=== PATIENT | male | born 1980 | race Caucasian/White ===

== ENCOUNTER 2018-03-21 20:51 | Emergency (ER) | payer OTHER ==
[~2018-03-21] VITALS: Ht 180.3 cm; Wt 81.7 kg
[~2018-03-21 20:51] MED LIST: BENTYL 20 MG TA20 M1 PO; CIPRO500 MG PO; CIPROFLOXACIN500 M1 PO; CYCLOBENZAPRINE5 MG PO; FLOMAX0.4 MG; FLOMAX0.4 MG PO; HYDROCODON-ACE1 EAC7 PO; IBUPROFEN 200200 M1; IBUPROFEN 800800 MG PO; MIGRAINE MED; MUCINEX TA600 MG/TA2; NAPROSYN500 M1 PO; NAPROSYN500 MG PO; NOHOMEMEDICATIONS; NORCO 5-325 TA1 EACH PO; PERCOCET 5-3251 EACH PO; PERCOCET 7.5-31 EACH PO; PERCOCET PO; PHENERGAN 25 MG25 M1 PO; PREDNISONE 20 M20 M1 PO; PROAIR HFA8.5 GM INH; TESSALON PERLE100 MG PO; TORADOL 10 MG T10 MG PO; TRAMADOL 50 MG50 MG PO; TYLENOL325 MG PO; ULTRACET TABLE1 EACH PO; ULTRAM 50MG TAB50 MG PO; ZOFRAN ODT4 MG PO; ZYRTEC10 M2 PO
[2018-03-21] MEDS ORDERED: MOBIC15 MG PO (22:06)
[2018-03-21] MEDS ORDERED: FLEXERIL PO (22:06)
[2018-03-21 22:24] VITALS: BP 121/70
== END 2018-03-21 22:24 | disposition home or self-care (01) ==
LOC: M.ERS 20:51
DX: S46.811A Strain of other muscles, fascia and tendons at shoulder and upper arm level, right arm, initial encounter (principal); J45.909 Unspecified asthma, uncomplicated; Z87.442 Personal history of urinary calculi; Z88.5 Allergy status to narcotic agent; Z88.8 Allergy status to other drugs, medicaments and biological substances; X58.XXXA Exposure to other specified factors, initial encounter; Y93.89 Activity, other specified; Y92.89 Other specified places as the place of occurrence of the external cause; Y99.8 Other external cause status

== ENCOUNTER 2018-04-03 21:16 | Emergency (ER) | payer OTHER ==
[~2018-04-03] VITALS: Ht 180.3 cm; Wt 81.7 kg
[~2018-04-03 21:16] MED LIST changes: +FLEXERIL PO; +MOBIC15 MG PO
[2018-04-03] MEDS ORDERED: NAPROSYN500 MG PO (21:24)
[2018-04-03 22:12] VITALS: BP 124/69
== END 2018-04-03 22:12 | disposition home or self-care (01) ==
LOC: M.ERS 21:16
DX: M77.8 Other enthesopathies, not elsewhere classified (principal); M70.841 Other soft tissue disorders related to use, overuse and pressure, right hand; Y93.89 Activity, other specified; J45.909 Unspecified asthma, uncomplicated; Z88.5 Allergy status to narcotic agent; Z88.8 Allergy status to other drugs, medicaments and biological substances

== ENCOUNTER 2018-12-04 02:12 | Emergency (ER) | payer OTHER ==
[~2018-12-04] VITALS: Ht 177.8 cm; Wt 79.4 kg
[2018-12-04] MEDS ORDERED: CLARITIN10 MG PO (02:18)
[2018-12-04] MEDS ORDERED: FLEXERIL PO (03:10)
[2018-12-04] MEDS ORDERED: PERCOCET 7.5-31 EACH PO (03:10)
[2018-12-04 03:33] VITALS: BP 147/76
== END 2018-12-04 03:34 | disposition home or self-care (01) ==
LOC: M.ERS 02:12
DX: S22.31XA Fracture of one rib, right side, initial encounter for closed fracture (principal); J45.909 Unspecified asthma, uncomplicated; Z88.5 Allergy status to narcotic agent; Z87.442 Personal history of urinary calculi; Z88.8 Allergy status to other drugs, medicaments and biological substances; X58.XXXA Exposure to other specified factors, initial encounter; Y93.89 Activity, other specified; Y92.89 Other specified places as the place of occurrence of the external cause; Y99.8 Other external cause status

== ENCOUNTER 2019-01-31 21:05 | Emergency (ER) | payer OTHER ==
[~2019-01-31] VITALS: Ht 177.8 cm; Wt 77.1 kg
[~2019-01-31 21:05] MED LIST changes: +CLARITIN10 MG PO
[2019-01-31] MEDS ORDERED: FLEXERIL PO (21:15)
[2019-01-31] MEDS ORDERED: TRAMADOL 50 MG50 MG PO (21:15)
[2019-01-31] MEDS ORDERED: TYLENOL WITH CO1 TA1 PO (22:56)
[2019-01-31 23:33] VITALS: BP 124/80
== END 2019-01-31 23:33 | disposition home or self-care (01) ==
LOC: M.ERS 21:05
DX: M76.62 Achilles tendinitis, left leg (principal); M79.672 Pain in left foot; J45.909 Unspecified asthma, uncomplicated; Z88.5 Allergy status to narcotic agent; Z88.8 Allergy status to other drugs, medicaments and biological substances; Z87.442 Personal history of urinary calculi

== ENCOUNTER 2019-04-25 21:18 | Emergency (ER) | payer OTHER ==
[~2019-04-25] VITALS: Ht 180.3 cm; Wt 78.5 kg
[~2019-04-25 21:18] MED LIST changes: +TYLENOL WITH CO1 TA1 PO
[2019-04-25] MEDS ORDERED: FAMOTIDINE 20 M20 MG PO (22:35)
[2019-04-25] MEDS ORDERED: BENADRYL25 MG PO (22:35)
[2019-04-25] MEDS ORDERED: PREDNISONE 20 M20 MG PO (22:35)
[2019-04-26 00:23] VITALS: BP 118/76
== END 2019-04-26 00:25 | disposition home or self-care (01) ==
LOC: M.ERS 21:18
DX: L50.0 Allergic urticaria (principal); J45.909 Unspecified asthma, uncomplicated; Z87.442 Personal history of urinary calculi; Z88.5 Allergy status to narcotic agent; Z88.8 Allergy status to other drugs, medicaments and biological substances

== ENCOUNTER 2019-08-14 18:13 | Emergency (ER) | payer OTHER ==
[~2019-08-14] VITALS: Ht 180.3 cm; Wt 77.1 kg
[~2019-08-14 18:13] MED LIST changes: +BENADRYL25 MG PO; +FAMOTIDINE 20 M20 MG PO; +PREDNISONE 20 M20 MG PO
[2019-08-14 18:51] LABS: HEMATOCRIT 46.5 % (42.0-52.0); HEMOGLOBIN 16.6 gm/dL (14.0-18.0); MCH 31.8 pg (26.0-34.0); MCHC 35.7 g/dL (28.0-37.0); MCV 89.1 fL (80.0-100.0); MPV 9.4 fl. (7.2-11.1); RBC 5.22 mil/uL (4.50-6.00); RDW-CV 12.7 % (10.5-14.5); WBC 9.3 thou/uL (4.0-11.0)
[2019-08-14 19:00] LABS: CALCIUM 8.2 mg/dL (8.5-10.1); CREATININE 1.2 mg/dL (0.6-1.3); POTASSIUM 3.5 mmol/L (3.5-5.1)
[2019-08-14] MEDS ORDERED: PREDNISONE50 MG PO (22:26)
[2019-08-14 22:42] VITALS: BP 113/62
--- NOTE | 2019-08-15 08:57 | EKG ---
[place] [address] ELECTROCARDIOGRAM REPORT Name: SARTHAK COSTELLO Room: [facility]#: [id number] Admission: 08/14/19 Attend Phys: Discharge: 08/14/19 Date of : 80 Date of Service: 08/14/191821 Report #: [id number] THIS REPORT FOR: //name// [facility] ED Test Date: 2019-08-14 Test Time: 18:22:37 Pat Name: SARTHAK COSTELLO Department: Room: Gender: Manager Clinical Pharmacy: : 1980 Requested By: Gregg Cantu Order Number: [id number] MD: Yair Collado Measurements Intervals [place] Rate: 56 P: 48 [place]: 146 QRS: 61 QRSD: 98 T: 55 QT: 398 QTc: 385 Interpretive Statements Sinus rhythm Probable left atrial enlargement Left ventricular hypertrophy ST elev, probable normal early repol pattern Compared to ECG 12/04/2016 08:31:38 No significant changes Electronically Signed On 08-15-2019 8:55:59 CDT by Yair Collado [email or web address] <ELECTRONICALLY SIGNED> By: Yair Collado MD, FAC 08/15/19 0855 1822 1822 Yair Collado MD, [facility] /EPI
== END 2019-08-14 22:43 | disposition home or self-care (01) ==
LOC: M.ERS 18:13
PROVIDERS: Emergency Medicine Emergency Medical Services
DX: T78.40XA Allergy, unspecified, initial encounter (principal); J45.909 Unspecified asthma, uncomplicated; Z87.442 Personal history of urinary calculi; Z88.6 Allergy status to analgesic agent; Z88.8 Allergy status to other drugs, medicaments and biological substances; X58.XXXA Exposure to other specified factors, initial encounter

== ENCOUNTER 2019-10-04 18:50 | Emergency (ER) | payer OTHER ==
[~2019-10-04] VITALS: Ht 180.3 cm; Wt 77.1 kg
[~2019-10-04 18:50] MED LIST changes: +PREDNISONE50 MG PO
[2019-10-04 19:52] LABS: URINE BILIRUBIN NEGATIVE (Negative); URINE BLOOD NEGATIVE (Negative); URINE CLARITY CLEAR; URINE COLOR YELLOW; URINE GLUCOSE-RANDOM NEGATIVE (Negative); URINE KETONES TRACE (Negative); URINE LEUKOCYTES-REFLEX NEGATIVE (Negative); URINE NITRITE-REFLEX NEGATIVE (Negative); URINE PROTEIN NEGATIVE (Negative); URINE SPECIFIC GRAVITY 1.025 (1.005-1.030)
[2019-10-04 20:08] LABS: ABSOLUTE EOSINOPHILS 0.1 thou/uL (0.0-0.7); ABSOLUTE LYMPHOCYTES 1.2 thou/uL (0.8-5.3); ABSOLUTE MONOCYTES 0.4 thou/uL (0.0-1.2); ABSOLUTE NEUTROPHILS 7.1 thou/uL (1.6-8.1); BASOPHILS 0.3 %; EOSINOPHILS 0.6 %; HEMATOCRIT 45.6 % (42.0-52.0); HEMOGLOBIN 16.3 gm/dL (14.0-18.0); LYMPHOCYTES 13.8 %; MCH 31.1 pg (26.0-34.0); MCHC 35.8 g/dL (28.0-37.0); MCV 86.9 fL (80.0-100.0); MONOCYTES 4.1 %; MPV 8.5 fl. (7.2-11.1); NUCLEATED RBCS 0 /100WBC; PLATELET COUNT* 193 thou/uL (150-400); POLYS 81.2 %; RBC 5.25 mil/uL (4.50-6.00); RDW-CV 13.2 % (10.5-14.5); WBC 8.8 thou/uL (4.0-11.0)
[2019-10-04 20:10] LABS: CALCIUM 8.6 mg/dL (8.5-10.1); POTASSIUM 4.2 mmol/L (3.5-5.1)
[2019-10-04 20:14] LABS: ALBUMIN 4.2 g/dL (3.4-5.0); TOTAL BILIRUBIN 1.2 mg/dL (<0.1-1.0); TOTAL PROTEIN 7.7 g/dL (6.4-8.2)
[2019-10-04 21:11] LABS: ESR (SEDRATE) 1 mm/hr (0-15)
[2019-10-04] MEDS ORDERED: PREDNISONE 20 M20 M1 PO (21:18)
[2019-10-04 21:59] VITALS: BP 126/82
== END 2019-10-04 21:55 | disposition home or self-care (01) ==
LOC: M.ERS 18:50
PROVIDERS: Personal Emergency Response Attendant
DX: T67.5XXA Heat exhaustion, unspecified, initial encounter (principal); L50.9 Urticaria, unspecified; R42 Dizziness and giddiness; J45.909 Unspecified asthma, uncomplicated; Z87.442 Personal history of urinary calculi; Z88.8 Allergy status to other drugs, medicaments and biological substances; Z88.5 Allergy status to narcotic agent; X30.XXXA Exposure to excessive natural heat, initial encounter; Y93.89 Activity, other specified; Y92.89 Other specified places as the place of occurrence of the external cause; Y99.8 Other external cause status

== ENCOUNTER 2020-01-26 21:17 | Emergency (ER) | payer BC ==
[~2020-01-26] VITALS: Ht 180.3 cm; Wt 74.8 kg
[2020-01-26] MEDS ORDERED: TRAMADOL 50 MG50 MG PO (21:30)
[2020-01-26 21:48] LABS: INFLUENZA A ANTIGEN Negative (Negative); INFLUENZA B ANTIGEN Negative (Negative)
[2020-01-26] MEDS ORDERED: PROAIR HFA8.5 GM INH (23:09)
[2020-01-26 23:16] VITALS: BP 125/72
== END 2020-01-26 23:17 | disposition home or self-care (01) ==
LOC: M.ERS 21:17
PROVIDERS: Emergency Medicine
DX: J06.9 Acute upper respiratory infection, unspecified (principal); Z20.828 Contact with and (suspected) exposure to other viral communicable diseases; J45.909 Unspecified asthma, uncomplicated; Z87.442 Personal history of urinary calculi; Z88.8 Allergy status to other drugs, medicaments and biological substances

== ENCOUNTER 2020-02-28 07:21 | Emergency (ER) | payer BC ==
[~2020-02-28] VITALS: Ht 180.3 cm; Wt 74.8 kg
[2020-02-28 07:34] LABS: URINE BILIRUBIN NEGATIVE (Negative); URINE BLOOD NEGATIVE (Negative); URINE CLARITY CLEAR; URINE COLOR YELLOW; URINE GLUCOSE-RANDOM 1+ (Negative); URINE KETONES NEGATIVE (Negative); URINE LEUKOCYTES-REFLEX NEGATIVE (Negative); URINE NITRITE-REFLEX NEGATIVE (Negative); URINE PROTEIN NEGATIVE (Negative); URINE SPECIFIC GRAVITY 1.025 (1.005-1.030); URINE UROBILINOGEN 0.2 E.U./dl (0.2-1.0)
[2020-02-28 07:57] LABS: ABSOLUTE EOSINOPHILS 0.1 thou/uL (0.0-0.7); ABSOLUTE LYMPHOCYTES 1.3 thou/uL (0.8-5.3); ABSOLUTE MONOCYTES 0.5 thou/uL (0.0-1.2); ABSOLUTE NEUTROPHILS 3.6 thou/uL (1.6-8.1); BASOPHILS 0.6 %; EOSINOPHILS 1.4 %; MCHC 35.5 g/dL (28.0-37.0); MCV 87.4 fL (80.0-100.0); MONOCYTES 8.5 %; MPV 8.8 fl. (7.2-11.1); NUCLEATED RBCS 0 /100WBC; PLATELET COUNT* 167 thou/uL (150-400); POLYS 66.5 %; RBC 5.49 mil/uL (4.50-6.00); RDW-CV 13.1 % (10.5-14.5); WBC 5.5 thou/uL (4.0-11.0)
[2020-02-28 08:15] LABS: CALCIUM 8.2 mg/dL (8.5-10.1); CREATININE 1.1 mg/dL (0.6-1.3); POTASSIUM 3.8 mmol/L (3.5-5.1)
[2020-02-28 08:20] LABS: ALBUMIN 3.6 g/dL (3.4-5.0); TOTAL BILIRUBIN 0.7 mg/dL (<0.1-1.0); TOTAL PROTEIN 7.4 g/dL (6.4-8.2)
[2020-02-28] MEDS ORDERED: TRAMADOL 50 MG50 MG PO (09:11)
[2020-02-28] MEDS ORDERED: ZOFRAN ODT4 MG SUBLING (09:11)
[2020-02-28 09:23] VITALS: BP 107/58
== END 2020-02-28 09:24 | disposition home or self-care (01) ==
LOC: M.ERS 07:21
PROVIDERS: Family Medicine
DX: R10.31 Right lower quadrant pain (principal); M54.5 Low back pain; R19.7 Diarrhea, unspecified; J45.909 Unspecified asthma, uncomplicated; Z87.442 Personal history of urinary calculi; Z79.899 Other long term (current) drug therapy; Z88.8 Allergy status to other drugs, medicaments and biological substances; Z88.6 Allergy status to analgesic agent

== ENCOUNTER 2020-03-28 06:10 | Emergency (ER) | payer BC ==
[~2020-03-28] VITALS: Ht 180.3 cm; Wt 72.6 kg
[~2020-03-28 06:10] MED LIST changes: +ZOFRAN ODT4 MG SUBLING
[2020-03-28 07:06] LABS: ABSOLUTE EOSINOPHILS 0.2 thou/uL (0.0-0.7); ABSOLUTE LYMPHOCYTES 1.5 thou/uL (0.8-5.3); ABSOLUTE MONOCYTES 0.5 thou/uL (0.0-1.2); ABSOLUTE NEUTROPHILS 2.6 thou/uL (1.6-8.1); BASOPHILS 0.7 %; EOSINOPHILS 3.4 %; HEMOGLOBIN 16.9 gm/dL (14.0-18.0); LYMPHOCYTES 31.7 %; MCH 30.6 pg (26.0-34.0); MCHC 34.5 g/dL (28.0-37.0); MCV 88.8 fL (80.0-100.0); MONOCYTES 9.6 %; MPV 9.1 fl. (7.2-11.1); NUCLEATED RBCS 0 /100WBC; PLATELET COUNT* 153 thou/uL (150-400); POLYS 54.6 %; RBC 5.52 mil/uL (4.50-6.00); RDW-CV 13.4 % (10.5-14.5); WBC 4.8 thou/uL (4.0-11.0)
[2020-03-28 07:15] LABS: CALCIUM 8.4 mg/dL (8.5-10.1); CREATININE 0.9 mg/dL (0.6-1.3); POTASSIUM 3.4 mmol/L (3.5-5.1)
[2020-03-28] MEDS ORDERED: ZOFRAN ODT4 MG DISSOLVE (09:19)
[2020-03-28 09:45] VITALS: BP 117/80
== END 2020-03-28 09:46 | disposition still patient (30) ==
LOC: M.ERS 06:10
PROVIDERS: Emergency Medicine
DX: R51.9 Headache, unspecified (principal); R10.84 Generalized abdominal pain; J45.909 Unspecified asthma, uncomplicated; Z79.899 Other long term (current) drug therapy; Z88.8 Allergy status to other drugs, medicaments and biological substances; Z20.828 Contact with and (suspected) exposure to other viral communicable diseases

== ENCOUNTER 2020-08-29 20:21 | Emergency (ER) | payer BC ==
[~2020-08-29] VITALS: Ht 180.3 cm; Wt 74.8 kg
[~2020-08-29 20:21] MED LIST changes: +ZOFRAN ODT4 MG DISSOLVE
[2020-08-29 20:55] LABS: ABSOLUTE EOSINOPHILS 0.2 thou/uL (0.0-0.7); ABSOLUTE LYMPHOCYTES 2.1 thou/uL (0.8-5.3); ABSOLUTE MONOCYTES 0.7 thou/uL (0.0-1.2); ABSOLUTE NEUTROPHILS 4.1 thou/uL (1.6-8.1); BASOPHILS 0.7 %; EOSINOPHILS 3.1 %; HEMATOCRIT 45.8 % (42.0-52.0); HEMOGLOBIN 16.1 gm/dL (14.0-18.0); LYMPHOCYTES 28.9 %; MCH 31.2 pg (26.0-34.0); MCV 89.1 fL (80.0-100.0); MPV 8.9 fl. (7.2-11.1); NUCLEATED RBCS 0 /100WBC; PLATELET COUNT* 184 thou/uL (150-400); POLYS 57.3 %; RBC 5.14 mil/uL (4.50-6.00); RDW-CV 13.2 % (10.5-14.5); WBC 7.1 thou/uL (4.0-11.0)
[2020-08-29 21:02] LABS: CALCIUM 8.5 mg/dL (8.5-10.1); CREATININE 0.9 mg/dL (0.6-1.3); POTASSIUM 3.4 mmol/L (3.5-5.1)
[2020-08-29 21:06] LABS: URINE BILIRUBIN NEGATIVE (Negative); URINE BLOOD NEGATIVE (Negative); URINE CLARITY CLEAR; URINE COLOR YELLOW; URINE GLUCOSE-RANDOM NEGATIVE (Negative); URINE KETONES NEGATIVE (Negative); URINE LEUKOCYTES-REFLEX NEGATIVE (Negative); URINE NITRITE-REFLEX NEGATIVE (Negative); URINE PROTEIN NEGATIVE (Negative); URINE SPECIFIC GRAVITY 1.015 (1.005-1.030)
[2020-08-29] MEDS ORDERED: ZOFRAN ODT4 MG PO (22:15)
[2020-08-29 22:34] VITALS: BP 122/68
== END 2020-08-29 22:34 | disposition home or self-care (01) ==
LOC: M.ERS 20:21
PROVIDERS: Emergency Medicine
DX: T67.9XXA Effect of heat and light, unspecified, initial encounter (principal); R51.9 Headache, unspecified; J45.909 Unspecified asthma, uncomplicated; Z88.5 Allergy status to narcotic agent; Z88.8 Allergy status to other drugs, medicaments and biological substances; Z87.442 Personal history of urinary calculi; X30.XXXA Exposure to excessive natural heat, initial encounter; Y93.89 Activity, other specified; Y92.89 Other specified places as the place of occurrence of the external cause; Y99.8 Other external cause status

== ENCOUNTER 2020-09-18 17:10 | Emergency (ER) | payer BC ==
[~2020-09-18] VITALS: Ht 180.3 cm; Wt 74.8 kg
[2020-09-18] MEDS ORDERED: TRAMADOL 50 MG50 MG PO (17:26)
[2020-09-18 19:04] LABS: ABSOLUTE BASOPHILS 0.1 thou/uL (0.0-0.2); ABSOLUTE EOSINOPHILS 0.1 thou/uL (0.0-0.7); ABSOLUTE LYMPHOCYTES 1.7 thou/uL (0.8-5.3); ABSOLUTE MONOCYTES 0.8 thou/uL (0.0-1.2); ABSOLUTE NEUTROPHILS 8.7 thou/uL (1.6-8.1); BASOPHILS 0.5 %; HEMATOCRIT 44.2 % (42.0-52.0); HEMOGLOBIN 15.9 gm/dL (14.0-18.0); LYMPHOCYTES 14.9 %; MCH 31.6 pg (26.0-34.0); MCHC 35.9 g/dL (28.0-37.0); MCV 87.8 fL (80.0-100.0); MONOCYTES 7.3 %; NUCLEATED RBCS 0 /100WBC; PLATELET COUNT* 187 thou/uL (150-400); POLYS 76.3 %; RBC 5.04 mil/uL (4.50-6.00); RDW-CV 13.2 % (10.5-14.5); WBC 11.3 thou/uL (4.0-11.0)
[2020-09-18 19:08] LABS: CALCIUM 8.2 mg/dL (8.5-10.1); CREATININE 0.9 mg/dL (0.6-1.3); POTASSIUM 3.9 mmol/L (3.5-5.1)
[2020-09-18 19:12] LABS: ALBUMIN 3.7 g/dL (3.4-5.0); TOTAL BILIRUBIN 0.5 mg/dL (<0.1-1.0); TOTAL PROTEIN 7.3 g/dL (6.4-8.2)
[2020-09-18] MEDS ORDERED: MEDROLDOSEPACK PO (20:19)
[2020-09-18] MEDS ORDERED: ZOFRAN ODT4 MG PO (20:19)
[2020-09-18 20:27] VITALS: BP 123/66
--- NOTE | 2020-09-19 09:22 | EKG ---
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 Terminal: : 1980 Requested By: Keely Ramachandran Order Number: [id number] MD: Yair Collado Measurements Intervals [place] Rate: 63 P: 44 [place]: 159 QRS: 53 QRSD: 88 T: 30 QT: 380 QTc: 389 Interpretive Statements Sinus rhythm Consider left ventricular hypertrophy ST elev, probable normal early repol pattern Compared to ECG 08/14/2019 18:22:37 No significant changes Electronically Signed On 09-19-2020 9:22:35 CDT by Yair Collado [email or web address] <ELECTRONICALLY SIGNED> By: Yair Collado MD, FAC 09/19/20 0922 1858 1858 aYir Collado MD, [facility] /EPI
== END 2020-09-18 20:28 | disposition home or self-care (01) ==
LOC: M.ERS 17:10
PROVIDERS: Nurse Practitioner Family
DX: M77.9 Enthesopathy, unspecified (principal); M25.532 Pain in left wrist; G43.909 Migraine, unspecified, not intractable, without status migrainosus; F12.90 Cannabis use, unspecified, uncomplicated; J45.909 Unspecified asthma, uncomplicated; Z88.5 Allergy status to narcotic agent; Z88.8 Allergy status to other drugs, medicaments and biological substances; Z87.442 Personal history of urinary calculi

== ENCOUNTER 2020-09-21 08:29 | Emergency (ER) | payer BC ==
[~2020-09-21] VITALS: Ht 154.9 cm; Wt 74.8 kg
[~2020-09-21 08:29] MED LIST changes: +MEDROLDOSEPACK PO
[2020-09-21 08:51] LABS: ABSOLUTE EOSINOPHILS 0.2 thou/uL (0.0-0.7); ABSOLUTE MONOCYTES 0.8 thou/uL (0.0-1.2); ABSOLUTE NEUTROPHILS 5.4 thou/uL (1.6-8.1); BASOPHILS 0.6 %; EOSINOPHILS 1.8 %; HEMATOCRIT 50.2 % (42.0-52.0); HEMOGLOBIN 17.7 gm/dL (14.0-18.0); LYMPHOCYTES 23.3 %; MCH 31.6 pg (26.0-34.0); MCHC 35.4 g/dL (28.0-37.0); MCV 89.4 fL (80.0-100.0); MONOCYTES 9.7 %; MPV 9.1 fl. (7.2-11.1); NUCLEATED RBCS 0 /100WBC; PLATELET COUNT* 206 thou/uL (150-400); POLYS 64.6 %; RBC 5.61 mil/uL (4.50-6.00); RDW-CV 13.3 % (10.5-14.5); WBC 8.4 thou/uL (4.0-11.0)
[2020-09-21 09:07] LABS: CALCIUM 8.8 mg/dL (8.5-10.1); POTASSIUM 4.3 mmol/L (3.5-5.1)
[2020-09-21 09:12] LABS: ALBUMIN 3.8 g/dL (3.4-5.0); TOTAL BILIRUBIN 0.8 mg/dL (<0.1-1.0); TOTAL PROTEIN 7.9 g/dL (6.4-8.2)
[2020-09-21 09:25] LABS: URINE BILIRUBIN NEGATIVE (Negative); URINE BLOOD 3+ (Negative); URINE CLARITY CLEAR; URINE COLOR YELLOW; URINE GLUCOSE-RANDOM NEGATIVE (Negative); URINE KETONES NEGATIVE (Negative); URINE LEUKOCYTES-REFLEX NEGATIVE (Negative); URINE NITRITE-REFLEX NEGATIVE (Negative); URINE PROTEIN NEGATIVE (Negative); URINE SPECIFIC GRAVITY >= 1.030 (1.005-1.030); URINE UROBILINOGEN 0.2 E.U./dl (0.2-1.0)
[2020-09-21 09:45] LABS: BACTERIA-REFLEX 1-9 Few /HPF (None Seen); CASTS None Seen /LPF (None Seen); CRYSTALS None Seen /LPF (None Seen); SQUAMOUS 0-3 Few /LPF (0-3); URINE RBC 3-10 Few /HPF (0-2); URINE WBC-REFLEX 0-5 Rare /HPF (0-5)
[2020-09-21] MEDS ORDERED: FLOMAX0.4 MG PO (10:01)
[2020-09-21] MEDS ORDERED: CIPROFLOXACIN500 M1 PO (10:01)
[2020-09-21] MEDS ORDERED: PERCOCET PO (10:01)
[2020-09-21] MEDS ORDERED: ZOFRAN ODT4 MG DISSOLVE (10:01)
[2020-09-21 10:15] VITALS: BP 110/69
== END 2020-09-21 10:15 | disposition home or self-care (01) ==
LOC: M.ERS 08:29
PROVIDERS: Family Medicine
DX: N20.0 Calculus of kidney (principal); J45.909 Unspecified asthma, uncomplicated; G43.909 Migraine, unspecified, not intractable, without status migrainosus; Z87.442 Personal history of urinary calculi; Z88.5 Allergy status to narcotic agent; Z88.8 Allergy status to other drugs, medicaments and biological substances

== ENCOUNTER 2020-10-07 17:12 | Emergency (ER) | payer BC ==
[~2020-10-07] VITALS: Ht 177.8 cm; Wt 78.0 kg
[2020-10-07 17:15] VITALS: BP 120/80
[2020-10-07] MEDS ORDERED: MELOXICAM7.5 MG PO (17:20)
[2020-10-07] MEDS ORDERED: POLYSPORIN OI28.3 GM TOP (17:23)
== END 2020-10-07 17:30 | disposition home or self-care (01) ==
LOC: M.ERS 17:12
DX: T23.212A Burn of second degree of left thumb (nail), initial encounter (principal); T31.0 Burns involving less than 10% of body surface; J45.909 Unspecified asthma, uncomplicated; G43.909 Migraine, unspecified, not intractable, without status migrainosus; Z87.442 Personal history of urinary calculi; Z88.5 Allergy status to narcotic agent; Z88.8 Allergy status to other drugs, medicaments and biological substances; X17.XXXA Contact with hot engines, machinery and tools, initial encounter; Y93.89 Activity, other specified; Y92.89 Other specified places as the place of occurrence of the external cause; Y99.8 Other external cause status

== ENCOUNTER 2021-01-06 19:55 | Emergency (ER) | payer BC ==
[~2021-01-06] VITALS: Ht 180.3 cm; Wt 74.8 kg
[~2021-01-06 19:55] MED LIST changes: +MELOXICAM7.5 MG PO; +POLYSPORIN OI28.3 GM TOP
[2021-01-06 21:31] LABS: ABSOLUTE BASOPHILS 0.1 thou/uL (0.0-0.2); ABSOLUTE EOSINOPHILS 0.2 thou/uL (0.0-0.7); ABSOLUTE LYMPHOCYTES 1.8 thou/uL (0.8-5.3); ABSOLUTE MONOCYTES 0.6 thou/uL (0.0-1.2); ABSOLUTE NEUTROPHILS 3.9 thou/uL (1.6-8.1); BASOPHILS 0.8 %; HEMATOCRIT 46.8 % (42.0-52.0); HEMOGLOBIN 16.4 gm/dL (14.0-18.0); LYMPHOCYTES 28.1 %; MCH 31.2 pg (26.0-34.0); MCV 89.1 fL (80.0-100.0); MONOCYTES 8.9 %; MPV 8.9 fl. (7.2-11.1); NUCLEATED RBCS 0 /100WBC; PLATELET COUNT* 181 thou/uL (150-400); POLYS 59.2 %; RBC 5.25 mil/uL (4.50-6.00); RDW-CV 13.3 % (10.5-14.5); WBC 6.5 thou/uL (4.0-11.0)
[2021-01-06 21:38] LABS: CALCIUM 8.4 mg/dL (8.5-10.1); CREATININE 1.1 mg/dL (0.6-1.3); POTASSIUM 3.5 mmol/L (3.5-5.1)
[2021-01-06 21:43] LABS: ALBUMIN 3.5 g/dL (3.4-5.0); TOTAL BILIRUBIN 0.5 mg/dL (<0.1-1.0); TOTAL PROTEIN 7.1 g/dL (6.4-8.2)
[2021-01-06 22:02] LABS: URINE BILIRUBIN NEGATIVE (Negative); URINE BLOOD NEGATIVE (Negative); URINE CLARITY CLEAR; URINE COLOR YELLOW; URINE GLUCOSE-RANDOM TRACE (Negative); URINE KETONES TRACE (Negative); URINE LEUKOCYTES-REFLEX NEGATIVE (Negative); URINE NITRITE-REFLEX NEGATIVE (Negative); URINE PROTEIN NEGATIVE (Negative); URINE SPECIFIC GRAVITY 1.025 (1.005-1.030); URINE UROBILINOGEN 0.2 E.U./dl (0.2-1.0)
[2021-01-06 22:14] LABS: AMP/METHAMP Negative (Negative); BARBITURATES Negative (Negative); BENZODIAZEPINES Negative (Negative); COCAINE Negative (Negative); METHADONE Negative (Negative); OPIATES Negative (Negative); PCP Negative (Negative); THC Negative (Negative)
[2021-01-06] MEDS ORDERED: TORADOL 10 MG T10 MG PO (23:00)
[2021-01-06] MEDS ORDERED: BUTALB-APAP-CA1 EACH PO (23:00)
[2021-01-06 23:13] VITALS: BP 121/70
--- NOTE | 2021-01-07 08:39 | EKG ---
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1980 Requested By: Dolly Linares Order Number: [id number] MD: Yair Collado Measurements Intervals [place] Rate: 63 P: 40 [place]: 147 QRS: 44 QRSD: 102 T: 37 QT: 383 QTc: 393 Interpretive Statements Sinus rhythm Probable left atrial enlargement Left ventricular hypertrophy ST elev, probable normal early repol pattern Compared to ECG 09/18/2020 18:58:52 No significant changes Electronically Signed On 01-07-2021 8:39:24 CDT by Yair Collado [email or web address] <ELECTRONICALLY SIGNED> By: Yair Collado MD, FACC 01/07/21 0839 26 26 Yair Collado MD, [facility] /EPI
== END 2021-01-06 23:14 | disposition home or self-care (01) ==
LOC: M.ERS 19:55
PROVIDERS: Personal Emergency Response Attendant
DX: G43.909 Migraine, unspecified, not intractable, without status migrainosus (principal); Z20.822 Contact with and (suspected) exposure to COVID-19; M54.2 Cervicalgia; M79.18 Myalgia, other site; J45.909 Unspecified asthma, uncomplicated; F12.90 Cannabis use, unspecified, uncomplicated; Z87.442 Personal history of urinary calculi; Z88.6 Allergy status to analgesic agent; Z88.5 Allergy status to narcotic agent; Z88.8 Allergy status to other drugs, medicaments and biological substances

== ENCOUNTER 2021-03-02 11:39 | Emergency (ER) | payer BC ==
[~2021-03-02] VITALS: Ht 180.3 cm; Wt 79.8 kg
[~2021-03-02 11:39] MED LIST changes: +BUTALB-APAP-CA1 EACH PO
[2021-03-02] MEDS ORDERED: TRAMADOL 50 MG50 MG PO (12:28)
[2021-03-02 13:51] LABS: INFLUENZA A ANTIGEN Negative (Negative); INFLUENZA B ANTIGEN Negative (Negative)
[2021-03-02] MEDS ORDERED: ZOFRAN ODT4 MG DISSOLVE (13:56)
[2021-03-02] MEDS ORDERED: TESSALON PERLE100 MG PO (13:56)
[2021-03-02 14:05] VITALS: BP 121/70
== END 2021-03-02 14:05 | disposition home or self-care (01) ==
LOC: M.ERS 11:39
PROVIDERS: Emergency Medicine Emergency Medical Services
DX: U07.1 COVID-19 (principal); J45.909 Unspecified asthma, uncomplicated; G43.909 Migraine, unspecified, not intractable, without status migrainosus; Z88.8 Allergy status to other drugs, medicaments and biological substances; Z88.5 Allergy status to narcotic agent

== ENCOUNTER 2021-03-06 20:12 | Emergency (ER) | payer BC ==
[~2021-03-06] VITALS: Ht 180.3 cm; Wt 79.4 kg
[2021-03-06 20:55] LABS: ABSOLUTE BASOPHILS 0.1 thou/uL (0.0-0.2); ABSOLUTE EOSINOPHILS 0.1 thou/uL (0.0-0.7); ABSOLUTE LYMPHOCYTES 1.6 thou/uL (0.8-5.3); ABSOLUTE MONOCYTES 0.5 thou/uL (0.0-1.2); ABSOLUTE NEUTROPHILS 2.4 thou/uL (1.6-8.1); BASOPHILS 1.1 %; HEMATOCRIT 47.5 % (42.0-52.0); HEMOGLOBIN 16.6 gm/dL (14.0-18.0); LYMPHOCYTES 33.7 %; MCH 31.2 pg (26.0-34.0); MCHC 34.9 g/dL (28.0-37.0); MCV 89.4 fL (80.0-100.0); MONOCYTES 11.5 %; MPV 9.6 fl. (7.2-11.1); NUCLEATED RBCS 0 /100WBC; PLATELET COUNT* 147 thou/uL (150-400); POLYS 51.7 %; RBC 5.32 mil/uL (4.50-6.00); RDW-CV 12.9 % (10.5-14.5); WBC 4.6 thou/uL (4.0-11.0)
[2021-03-06 21:16] LABS: CALCIUM 8.2 mg/dL (8.5-10.1); POTASSIUM 3.6 mmol/L (3.5-5.1)
[2021-03-06 21:21] LABS: ALBUMIN 3.6 g/dL (3.4-5.0); TOTAL BILIRUBIN 0.5 mg/dL (<0.1-1.0); TOTAL PROTEIN 7.2 g/dL (6.4-8.2)
[2021-03-06] MEDS ORDERED: DECADRON6 MG PO (21:29)
[2021-03-06] MEDS ORDERED: PROAIR HFA8.5 GM INH (21:29)
[2021-03-06 21:36] VITALS: BP 126/76
--- NOTE | 2021-03-07 12:23 | EKG ---
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 : 1980 Requested By: Mateo Rodriguez Order Number: [id number] MD: Yonatan Leung Measurements Intervals [place] Rate: 84 P: 51 [place]: 149 QRS: 50 QRSD: 84 T: 37 QT: 343 QTc: 406 Interpretive Statements Sinus rhythm Biatrial enlargement probable left ventricular hypertrophy ST elev, probable normal early repol pattern Compared to ECG 01/06/2021 21:27:16 No significant changes Electronically Signed On 03-07-2021 12:23:14 [place] HOISTER by Yonatan Leung [email or web address] <ELECTRONICALLY SIGNED> By: Yonatan Leung MD, FACC 03/07/21 1223 29 29 Yonatan Leung MD, FAC /EPI
== END 2021-03-06 21:36 | disposition home or self-care (01) ==
LOC: M.ERS 20:12
PROVIDERS: Physician Assistant
DX: U07.1 COVID-19 (principal); J45.901 Unspecified asthma with (acute) exacerbation; G43.909 Migraine, unspecified, not intractable, without status migrainosus; Z87.442 Personal history of urinary calculi; Z79.899 Other long term (current) drug therapy; Z88.8 Allergy status to other drugs, medicaments and biological substances; Z88.6 Allergy status to analgesic agent